=== PATIENT | female | born 1995 | race Caucasian/White ===

== ENCOUNTER 2019-04-26 10:43 | Outpatient (RCR) | payer OTHER, SELFPAY ==
[2019-04-26 13:23] LABS: HIV 1/2 Ab P24 Ag Result Negative (Negative)
[2019-04-26 14:51] LABS: Hematocrit 34.4 % (37.0-47.0); Hemoglobin 11.3 g/dL (12.0-15.0)
[2019-04-27 10:48] LABS: Rapid Plasma Reagin Non-Reactive (NonReactive)
[2019-04-28] MEDS: RHO(D) IMMUNE GLOBULIN 300 MCG SYRINGE IM (16:48)
== END 2019-07-25 23:59 | disposition home or self-care (01) ==
LOC: ANHLAB 10:43
PROVIDERS: PCP Physician Assistant; Visit Provider Advanced Practice Midwife
DX: Z36.89 Encounter for other specified antenatal screening (principal); Z29.13 Encounter for prophylactic Rho(D) immune globulin; O36.0990 Maternal care for other rhesus isoimmunization, unspecified trimester, not applicable or unspecified; Z3A.00 Weeks of gestation of pregnancy not specified
CPT/HCPCS: 36415; 85014; 85018; 86592; 86703; 86850; 86900; 86901; 90384; 96372; G0432; J2790

== ENCOUNTER 2019-07-03 14:11 | Observation (INO) | payer OTHER, SELFPAY ==
[2019-07-03 14:30] VITALS: BMI 36.3
--- NOTE | 2019-07-03 16:44 | PC.NURSE ---
Discharge interventions were actually done by Arnol Jacobo RNC and not Walt Villegas RN.
--- NOTE | 2019-07-25 21:15 | PM.OBTRLD ---
OB - Triage/Final Diagnosis Visit Information Date of evaluation: 07/03/19 Final Diagnosis (1) False labor: Code(s): O47.9 - False labor, unspecified Status: Acute
== END 2019-07-03 16:44 | disposition home or self-care (01) ==
PROVIDERS: Admitting Provider Obstetrics & Gynecology; PCP Physician Assistant; Visit Provider Obstetrics & Gynecology
DX: O47.1 False labor at or after 37 completed weeks of gestation (principal); Z3A.37 37 weeks gestation of pregnancy
CPT/HCPCS: G0378; G0379

== ENCOUNTER 2019-07-07 01:00 | Inpatient (IN) | payer OTHER, SELFPAY ==
[2019-07-06 07:09] VITALS: BP 119/75; PULSE 74; RESP 12; TEMP 36.8; O2SAT 99
[2019-07-07] VITALS (15 sets, daily range): BP systolic 127–156; BP diastolic 65–98; PULSE 77–105; RESP 14; TEMP 36.4–36.8; O2SAT 100
[2019-07-07 02:24] LABS: Basophils Percent Auto 0.2 % (0.2-1.2); Eosinophils Absolute Auto 0.2 K/mm3 (0-0.3); Eosinophils Percent Auto 1.2 % (0-4.4); Hematocrit 34.2 % (37.0-47.0); Hemoglobin 11.2 g/dL (12.0-15.0); Immature Granulocyte Absolute 0.07 K/mm3 (0.00-0.031); Immature Granulocyte Percent A 0.6 % (0-0.5); Lymphocytes Absolute Auto 1.45 K/mm3 (0.9-3.2); Lymphocytes Percent Auto 11.9 % (18.3-44.2); Mean Corpuscular HGB Conc 32.7 g/dl (32-36); Mean Corpuscular Hemoglobin 26.8 pg (26-34); Mean Corpuscular Volume 81.8 fl (80-100); Mean Platelet Volume 11.5 fl (7.4-10.4); Monocytes Absolute Auto 0.8 K/mm3 (0.1-0.6); Monocytes Percent Auto 6.6 % (2.6-8.5); Neutrophils Absolute Auto 9.7 K/mm3 (1.3-6.7); Neutrophils Percent Auto 79.5 % (45.5-73.1); Platelet Count Result 201 k/mm3 (150-375); Red Blood Count 4.18 M/mm3 (4.2-5.4); Red Cell Distribution Width 14.6 % (11.5-14.5); White Blood Count 12.2 K/mm3 (4.5-10.0)
[2019-07-07] MEDS: LACTATED RINGERS 1,000 ML 125 ML IV CONT (02:30)
[2019-07-07] MEDS: OXYTOCIN 30 UNITS/NS 500 ML 30 UNITS/500 ML BAG 999 UNITS IV CONT (03:15)
--- NOTE | 2019-07-07 03:18 | WPDHPUPDATE1 ---
History and Physical Update Update Date/Time: 07/07/19 03:18 24 year old multi who presented in labor with srom. Shortly after was . History and Physical has been reviewed, including an updated exam of the patient. There are NO changes in the patient's condition. Risks, benefits, and alternatives have been discussed and questions answered. Patient agrees to proceed with procedure.
--- NOTE | 2019-07-07 03:22 | PM.OBPRVD ---
OB - Delivery Note Procedure Delivery date: 07/07/19 Intrapartal events: None Induction method: none Delivery monitor: external FHT and external uterine Route of delivery: Laceration description: None Specimen: No Estimated blood loss (mL): 200 Anesthesia type: None Disposition: floor [place] Baby Date of : 07/07/19 Time of : 03:07 Weeks of gestation at delivery: 37 gender: Female Weight (pounds): 6 Weight (ounces): 11 presentation: vertex Placenta delivery description: Spontaneous score one minute: 9 score five minutes: 9
[2019-07-07] MEDS: OXYTOCIN 30 UNITS/NS 500 ML 30 UNITS/500 ML BAG 125 UNITS IV CONT (03:50)
[2019-07-07] MEDS: IBUPROFEN 600 MG TABLET PO ×3 (03:50→19:11)
--- NOTE | 2019-07-07 05:36 | PC.NURSE ---
Patient transferred to post room #286 via wheel chair. Support person present. Oriented to unit, room, information board, rooming in, admission packet and security measures. Patient verbalizes understanding.
--- NOTE | 2019-07-07 07:50 | LDADM ---
This patient, Nidia Rodriguez, was admitted to OB 2nd Floor Room 286 on 07/07/19 at 01:00. Plans for labor, pain management and were discussed with patient. Patient/family oriented to hospital policies and general routines including ID bracelet, bed and alarms, visiting hours, pain management, procedures, bathroom and other care routines, personal items, smoking policy, room service/diet and guest tray routines, infant security routines, and visiting hours. Patient/Family are encouraged to report perceived risks to care and to ask questions if they do not understand what they are told or what they should do. See OBIX for further documentation.
[2019-07-07] MEDS: DOCUSATE SODIUM 100 MG CAPSULE PO (10:42)
[2019-07-07] MEDS: MULTIVIT/MIN/PREN/FOL AC/IRON TABLET 1 TAB PO (10:42)
[2019-07-07] MEDS: ACETAMINOPHEN 325 MG TABLET 650 MG PO (15:54)
[2019-07-07] MEDS: TETANUS,DIPHTHERIA,AC PERTUSSIS ADULT (0.5 ML) BOOSTRIX IM (15:57)
[2019-07-08] MEDS: IBUPROFEN 600 MG TABLET PO (03:15)
[2019-07-08 06:07] LABS: Hematocrit 30.3 % (37.0-47.0); Hemoglobin 9.9 g/dL (12.0-15.0)
[2019-07-08 08:00] VITALS: BP 104/64; PULSE 82; RESP 18; TEMP 36.2; O2SAT 96
[2019-07-08] MEDS: MULTIVIT/MIN/PREN/FOL AC/IRON TABLET 1 TAB PO (08:18)
[2019-07-08] MEDS: ACETAMINOPHEN 325 MG TABLET 650 MG PO (08:18)
[2019-07-08] MEDS: DOCUSATE SODIUM 100 MG CAPSULE PO (08:18)
[2019-07-08] MEDS: POLYSACCHARIDE IRON COMPLEX 150 MG CAPSULE PO (08:18)
--- NOTE | 2019-07-08 12:15 | PM.OBPNVD ---
OB - PN: Subj Subjective Date/time seen: 07/08/19 12:15 Patient comments: no complaints, pain well controlled, incisional pain, tolerating diet and flatus present OB - PN: Obj Data Labs CBC & Chem 7: 07/08/19 05:05 Labs: Laboratory Results - last 24 hr 07/08/19 05:05 Hgb 9.9 L Hct 30.3 L OB - PN A/P Plan day: 1 Plan: routine care Comments: No problems, routine care Time Spent With Patient Time: Total time spent is greater than 50% in coordination of care (as documented) at patient's floor/unit and/or counseling patient: Exam Const: General: comfortable, no acute distress and alert Resp: Effort & Inspection: normal respiratory effort Auscultation: no crackles, no rales and no rhonchi Cardio: Rate: regular rate Heart sounds: no click, no murmurs and no rubs GI: Inspection: non-distended GI Palp: No Tenderness to palpation present (GI) Auscultation: normal bowel sounds Other: Incision - CDI Extrem: General: normal to inspection, no pedal edema and no calf tenderness
--- NOTE | 2019-07-08 12:16 | PM.OBDSVD ---
OB - DS: Summary OB Procedures : None OB Procedures Intrapartum: Spontaneous Vag Delivery OB Procedures: : None Peripartum Data Delivery Method: Natural Vaginal complications: none Status at Discharge Functional status at discharge: independent ambulation Time Spent with Patient Time attestation: Total time spent providing and/or coordinating discharge services: DS: Data Data Completed and Pending Labs on day of discharge: Labs from last 24 hours 07/08/19 05:05 Hgb 9.9 L Hct 30.3 L Discharge Plan Discharge Discharging Clinician: Briana Henry Patient Disposition: Home, Self-Care Activity: pelvic rest Diet: regular Patient Instructions: Antibiotic Form Stand Alone Forms: General Discharge Information Follow-up/Referrals: Briana Henry MD [Physician] - Discharge Medications: Continued 19 29 mg iron- 1 mg Tablet,Chewable 1 tablet PO DAILY RF: 0 Date of admission: 07/07/19 01:00 Primary Care Provider: KelseaBoni Admitting Provider: Briana Henry Attending physician on admission: Briana Henry
[2019-07-09 09:25] LABS: Rapid Plasma Reagin Non-Reactive (NonReactive)
[2019-07-10 09:38] VITALS: BP 123/71; PULSE 76; RESP 16; TEMP 36.5; O2SAT 100
== END 2019-07-08 14:12 | disposition home or self-care (01) | DRG 560 ==
LOC: ANHLDR 02:20 → ANHOB2 06:46
PROVIDERS: Admitting Provider Obstetrics & Gynecology; PCP Physician Assistant; Visit Provider Obstetrics & Gynecology
DX: O62.3 Precipitate labor (principal); Z3A.37 37 weeks gestation of pregnancy; Z37.0 Single live birth
CPT/HCPCS: 36415; 85014; 85018; 85025; 86592; 86850; 86900; 86901; 90715; A9270; J2590; J7120

== ENCOUNTER 2023-04-29 09:31 | Outpatient (RCR) | payer BC, SELFPAY ==
[2023-04-29 11:03] LABS: Hematocrit 34.1 % (37.0-47.0); Hemoglobin 11.1 g/dL (12.0-15.0)
[2023-04-29 11:18] LABS: Glucose 1 Hour PP 50gm Dose 136 mg/dL
[2023-04-29 12:02] LABS: HIV 1/2 Ab P24 Ag Result Negative (Negative)
[2023-05-01] MEDS: RHO(D) IMMUNE GLOBULIN 300 MCG/2 ML SYRINGE IM (15:46)
== END 2023-07-28 23:59 | disposition home or self-care (01) ==
LOC: ANHLAB 09:31
PROVIDERS: PCP Physician Assistant; Visit Provider Obstetrics & Gynecology
DX: Z11.4 Encounter for screening for human immunodeficiency virus [HIV] (principal); Z29.13 Encounter for prophylactic Rho(D) immune globulin; O36.0130 Maternal care for anti-D [Rh] antibodies, third trimester, not applicable or unspecified; Z3A.00 Weeks of gestation of pregnancy not specified
CPT/HCPCS: 36415; 82947; 85014; 85018; 85461; 86703; 86850; 86880; 86900; 86901; 86902; 90384; 96372; G0432; J2790

== ENCOUNTER 2023-06-18 15:37 | Inpatient (IN) | payer BC, MEDICAID, SELFPAY ==
[2023-06-18] VITALS (14 sets, daily range): BP systolic 122–153; BP diastolic 59–83; PULSE 74–92; TEMP 36.3–36.4; BMI 39.8
--- NOTE | 2023-06-18 15:37 | OBADM ---
This patient, Nidia Rodriguez, admitted to the OB room Labor/Delivery/Recovery 107 for observation. Patient/family oriented to hospital policies and general routines including ID bracelet, bed and alarms, visiting hours, pain management, procedures, bathroom and other care routines, personal items, smoking policy, room service/diet, and visiting hours. Patient/Family are encouraged to report perceived risks to care and to ask questions if they do not understand what they are told or what they should do.
[2023-06-18] MEDS: NIFEdipine 30 MG TAB.ER.24 PO (16:17)
--- NOTE | 2023-06-18 17:18 | LDADM ---
This patient, Nidia Rodriguez, was admitted to Labor/Delivery/Recovery 107 on 06/18/23 at 17:18. Plans for labor, pain management and were discussed with patient. Patient/family oriented to hospital policies and general routines including ID bracelet, bed and alarms, visiting hours, pain management, procedures, bathroom and other care routines, personal items, smoking policy, room service/diet and guest tray routines, infant security routines, and visiting hours. Patient/Family are encouraged to report perceived risks to care and to ask questions if they do not understand what they are told or what they should do. See OBIX for further documentation.
[2023-06-18 17:49] LABS: Basophils Percent Auto 0.1 % (0.2-1.2); Eosinophils Absolute Auto 0.1 K/mm3 (0-0.3); Eosinophils Percent Auto 0.7 % (0-4.4); Hematocrit 32.9 % (37.0-47.0); Hemoglobin 10.9 g/dL (12.0-15.0); Immature Granulocyte Absolute 0.04 K/mm3 (0.00-0.031); Immature Granulocyte Percent A 0.3 % (0-0.5); Lymphocytes Absolute Auto 1.37 K/mm3 (0.9-3.2); Lymphocytes Percent Auto 10.1 % (18.3-44.2); Mean Corpuscular HGB Conc 33.1 g/dl (32-36); Mean Corpuscular Hemoglobin 27.2 pg (26-34); Mean Platelet Volume 10.8 fl (7.4-10.4); Monocytes Absolute Auto 0.7 K/mm3 (0.1-0.6); Monocytes Percent Auto 5.3 % (2.6-8.5); Neutrophils Absolute Auto 11.3 K/mm3 (1.3-6.7); Neutrophils Percent Auto 83.5 % (45.5-73.1); Platelet Count Result 224 k/mm3 (150-375); Red Blood Count 4.01 M/mm3 (4.2-5.4); Red Cell Distribution Width 13.2 % (11.5-14.5); White Blood Count 13.6 K/mm3 (4.5-10.0)
[2023-06-18] MEDS: AMPICILLIN 2 GM/NS 100 ML 2 GM/100 ML BAG IVPB (18:19)
[2023-06-18] MEDS: LACTATED RINGERS 1,000 ML 125 ML IV CONT (18:19)
[2023-06-18 20:39] LABS: Bacteria Urine None Seen /hpf; Non Pathogenic Casts 0-2; RBC Urine 0-2 /hpf (0-2); Squamous Epithelial Cell Urine Occasional /hpf (Few)
[2023-06-18 20:42] LABS: Appearance Urine Clear (Clear); Color Urine Dark Yellow (Yellow); Glucose Urine UA Negative (Negative); Protein Urine 1+ mg/dL (Negative); Specific Grav Ur >= 1.030 (1.001-1.035); pH Urine 6.5 (5.0-9.0)
[2023-06-18 20:43] LABS: Add Urine Microscopic? YES; Bilirubin Urine 1+ (Negative); Blood Urine Negative (Negative); Ketones Urine 3+ mg/dL (Negative); Leukocyte Esterase Ur Negative LEU/UL (Negative); Nitrate Urine Negative (Negative)
[2023-06-18 21:00] LABS: Creatinine Urine 179.8 mg/dL; Total Protein Urine Random 14 mg/dL; Ur Ttl Prot Creatinine Ratio 0.08 mg/mg (0-0.20)
[2023-06-18 21:17] LABS: Alanine Aminotransferase 11 U/L (6-35); Albumin Level 3.4 g/dL (3.5-5.1); Alkaline Phosphatase 155 U/L (38-126); Anion Gap 4 mmol/L (8-16); Aspartate Amino Transferase 16 U/L (14-36); Bilirubin,Total 0.6 mg/dL (0.2-1.3); Blood Urea Nitrogen 7 mg/dL (7-17); Calcium 8.6 mg/dL (8.4-10.2); Carbon Dioxide 23 mmol/L (22-30); Chloride 106 mmol/L (98-107); Estimated CRCL calculation 179 ml/min; Estimated Glomerular Filt Rate > 60; Glucose 82 mg/dL (65-110); Potassium 3.2 mmol/L (3.4-5.0); Sodium 133 mmol/L (137-145)
--- NOTE | 2023-06-18 22:46 | PC.NURSE ---
Patient left at 2241 ambulatory with no distress noted. Discharge instructions discussed and patient verbalized understanding. Informed to come back in if contractions are consistently 5 mins or less apart, vaginal bleeding, or water breaks. Informed to go to nearest hospital if there is an emergency.
--- NOTE | 2023-06-20 15:57 | PM.IMHP ---
H&P: HPI History of Present Illness Date/Time: 06/20/23 15:57 Chief Complaint: 35 weeks gestation, admitted for early labor, gbs unknown. after changing cervix from 3-4, pt has remain unchanged, contrcations have slowed with hydration and medication. Review of Systems Review of Systems: All systems reviewed & are unremarkable except as noted in HPI and below PMFSH Family History Family History (Updated 06/27/19 @ 13:41 by Madelaine Ta RN) Father Hypertension Grandparent Cancer Heart disease Sibling Optic nerve hypoplasia of left eye Social History Social History Smoking status: Never smoker Substance use: never Do You Feel Safe in your Home?: Yes Lack of Transportation: No Lack of Food: Never True Current Housing: I Have Housing Concerned About Future Housing: No Difficulty Paying Gas/Electric Bills: No Difficulty Paying for Meds: No Currently Unemployed: No Education: High School Diploma/GED Difficulty w/ Childcare or Family Care: No Spiritual care concerns: No Meds Home Medications and Allergies Home Medications Medication Instructions Recorded Confirmed Type vitamin no.115-iron 29 1 tablet PO DAILY 06/27/19 06/18/23 History mg-folic acid 1 mg chewable tablet ( 19) Allergies Allergy/AdvReac Type Severity Reaction Status Date / Time nickel Allergy Unknown Rash Verified 06/27/19 13:38 Exam Const: General: cooperative Psych: Appearance: grossly normal Assessment and Plan Assessment and plan (1) contractions: Code(s): O47.00 - False labor before 37 completed weeks of gestation, unspecified trimester Status: Acute Plan 1. contractions resolved pt d/c d home
--- NOTE | 2023-06-20 16:00 | PM.OBDSVD ---
DS: Admitting Diagnosis Discharge Date 06/18/23 Admitting Diagnosis contractions DS: Discharge Diagnosis Discharge Diagnosis (1) contractions: Code(s): O47.00 - False labor before 37 completed weeks of gestation, unspecified trimester Status: Acute OB - DS: Summary OB Procedures : None OB Procedures Intrapartum: Other (undelivered) OB Procedures: : None Time Spent with Patient Time attestation: Total time spent providing and/or coordinating discharge services: Discharge Plan Discharge Consulting providers: Jeana Ho Discharging Clinician: Jeana Ho Patient Disposition: Home, Self-Care Activity: as tolerated Diet: as tolerated Discharge Instructions: OB ANTEPARTUM DISCHARGE INSTRUCTIONS This information is given to help you properly care for yourself at home after your discharge from the hospital. Follow these instructions until your doctor tells you otherwise. DIET: Additional Diet Instructions: ACTIVITY: Additional Activity Instructions: RETURN TO LABOR AND DELIVERY IF YOU HAVE: Additional Reasons to Return to Labor and Delivery: Contractions may feel like abdominal pain, tightening, cramping, pressure, back ache, or thigh ache. Come in if contractions are consistently less than 5 minutes apart, water breaks, or vaginal bleeding. Do kick counts. Stay hydrated. OTHER INSTRUCTIONS: FOLLOW-UP CARE: To see in/on Valuables released to patient or family? Medications from home returned to patient? IF YOU HAVE ANY QUESTIONS REGARDING THESE INSTRUCTIONS, PLEASE CALL [phone]. IF PROBLEMS ARISE, CALL YOUR PROVIDER. IF EMERGENCY CARE IS NEEDED, [facility] EMERGENCY ROOM IS AVAILABLE 24 HOURS A DAY. Patient Instructions: Antibiotic Form Stand Alone Forms: General Discharge Information Follow-up/Referrals: Jeana Ho CNM [Certified Nurse Small Boat Engineer] - Discharge Medications: Continued 19 29 mg iron- 1 mg Tablet,Chewable 1 tablet PO DAILY Date of admission: 06/18/23 17:18 Primary Care Provider: KelseaBoni Admitting Provider: Briana Henry Attending physician on admission: Briana Henry Condition: Stable
[2023-06-20 16:53] LABS: Rapid Plasma Reagin Non-Reactive (NonReactive)
== END 2023-06-18 22:41 | disposition home or self-care (01) | DRG 833 ==
PROVIDERS: Advanced Practice Midwife; Admitting Provider Obstetrics & Gynecology; PCP Physician Assistant; Visit Provider Obstetrics & Gynecology
DX: O47.03 False labor before 37 completed weeks of gestation, third trimester (principal); Z3A.37 37 weeks gestation of pregnancy
CPT/HCPCS: 36415; 80053; 81001; 82570; 84156; 85025; 86592; 86850; 86880; 86900; 86901; 86902; 87086; A9270; G0378; G0379; J0290; J7120

== ENCOUNTER 2023-07-01 04:53 | Inpatient (IN) | payer BC, MEDICAID, SELFPAY ==
[2023-07-01] VITALS (34 sets, daily range): BP systolic 116–165; BP diastolic 66–138; PULSE 63–111; RESP 16–18; TEMP 36.3–36.7; O2SAT 100; BMI 39.1
--- NOTE | 2023-07-01 05:51 | ADMGEN ---
This patient, Niida Rodriguez, was admitted to Labor/Delivery/Recovery 107-00. Patient/family oriented to hospital policies and general routines including ID bracelet, bed and alarms, visiting hours, pain management, procedures, bathroom and other care routines, personal items, smoking policy, room service/diet, and visiting hours. Information on how to activate the Rapid Response Team has been discussed. Patient/Family are encouraged to report perceived risks to care and to ask questions if they do not understand what they are told or what they should do.
[2023-07-01 06:00] LABS: Basophils Percent Auto 0.3 % (0.2-1.2); Eosinophils Absolute Auto 0.2 K/mm3 (0-0.3); Eosinophils Percent Auto 1.5 % (0-4.4); Hematocrit 31.7 % (37.0-47.0); Hemoglobin 10.6 g/dL (12.0-15.0); Immature Granulocyte Absolute 0.04 K/mm3 (0.00-0.031); Immature Granulocyte Percent A 0.4 % (0-0.5); Lymphocytes Absolute Auto 1.48 K/mm3 (0.9-3.2); Mean Corpuscular HGB Conc 33.4 g/dl (32-36); Mean Corpuscular Hemoglobin 26.9 pg (26-34); Mean Corpuscular Volume 80.5 fl (80-100); Monocytes Absolute Auto 0.7 K/mm3 (0.1-0.6); Monocytes Percent Auto 6.7 % (2.6-8.5); Neutrophils Absolute Auto 7.5 K/mm3 (1.3-6.7); Neutrophils Percent Auto 76.1 % (45.5-73.1); Platelet Count Result 206 k/mm3 (150-375); Red Blood Count 3.94 M/mm3 (4.2-5.4); Red Cell Distribution Width 13.7 % (11.5-14.5); White Blood Count 9.9 K/mm3 (4.5-10.0)
[2023-07-01] MEDS: OXYTOCIN 30 UNITS/NS 500 ML 30 UNITS/500 ML BAG IV CONT (06:30)
[2023-07-01] MEDS: LACTATED RINGERS 1,000 ML 125 ML IV CONT (06:30)
--- NOTE | 2023-07-01 07:19 | WPDOBADMIT ---
Obstetrics - Admit Note Admission Note: record reviewed. No pertinent additions to the history and/or any subsequent changes in the physical findings that are not consistent with the expected course of the were found. Additions to the history and/or subsequent changes in the physical findings follow. IOL, GHTN, SVE /-2 AROM large amount of clear, odorless fluid, anticipate vaginal delivery
[2023-07-01] MEDS: fentaNYL CITRATE INJ (*CRX) 100 MCG/2 ML VIAL IV PUSH (09:45)
--- NOTE | 2023-07-01 10:18 | PM.OBPRVD ---
OB - Vaginal Delivery Note Procedure Delivery date: 07/01/23 Events: Gestational Hypertension Induction method: AROM and Per Pitocin Protocol Delivery monitor: External FHT and Internal FHT Route of delivery: Episiotomy description: None Laceration Description: None Specimen: Yes Quantitative Blood Loss (ml): 150 Anesthesia type: Epidural Disposition: Floor Complications: No immediate complications [place] Baby Date of : 07/01/23 Time of : 10:05 Weeks of gestation at delivery: 37 Infant gender: Female presentation: vertex position: Left Occiput Anterior Placenta delivery description: Manual Removal Cord Vessel Description: 3 Vessels, Clamped/Cut and Delayed Cord Clamping score one minute: 9 score five minutes: 9 Narrative: mother and baby skin to skin in stable condition
[2023-07-01] MEDS: ceFAZolin 2 GM/D5W 50 ML 2 GM/50 ML BAG IVPB (10:19)
[2023-07-01] MEDS: OXYTOCIN 30 UNITS/NS 500 ML 30 UNITS/500 ML BAG 125 UNITS IV CONT (10:39)
[2023-07-01] MEDS: BENZOCAINE 20% AER SPR (*SP) 56 GM CAN 1 SPRAY TOPICAL (12:29)
[2023-07-01] MEDS: WITCH HAZEL 40 PADS 1 PAD TOPICAL (12:29)
[2023-07-01 12:40] LABS: Rapid Plasma Reagin Non-Reactive (NonReactive)
--- NOTE | 2023-07-01 12:40 | PC.NURSE ---
Patient transferred to post room #283 per wheelchair from labor and delivery. Support person present. Oriented to unit, room, information board, rooming in, admission packet and security measures. Patient verbalizes understanding.
[2023-07-01] MEDS: IBUPROFEN 600 MG TABLET PO (15:07)
[2023-07-02] MEDS: IBUPROFEN 600 MG TABLET PO (01:10)
[2023-07-02] MEDS: ACETAMINOPHEN 325 MG TABLET 650 MG PO (04:51)
[2023-07-02 05:15] LABS: Hemoglobin 10.6 g/dL (12.0-15.0)
[2023-07-02 05:50] VITALS: BP 131/80; PULSE 77; RESP 16; TEMP 36.6; O2SAT 100
[2023-07-02 08:07] VITALS: BP 111/70; PULSE 73; RESP 16; TEMP 36.6; O2SAT 100
[2023-07-02] MEDS: MULTIVIT/MIN/PREN/FOL AC/IRON TABLET 1 TAB PO (08:39)
[2023-07-02] MEDS: DOCUSATE SODIUM 100 MG CAPSULE PO (08:39)
--- NOTE | 2023-07-02 10:43 | PM.OBPNVD ---
OB - PN: Subj Subjective Date/time seen: 07/02/23 10:43 Patient comments: no complaints, pain well controlled, incisional pain, tolerating diet and flatus present OB - PN: Obj Data Labs 07/02/23 04:52 Labs: Laboratory Results - last 24 hr 07/01/23 07/02/23 05:54 04:52 Hgb 10.6 L Hct 33.0 L RPR Non-reactive OB - PN A/P Plan day: 1 Plan: routine care Comments: No problems, routine care Time Spent With Patient Time: Total time spent is greater than 50% in coordination of care (as documented) at patient's floor/unit and/or counseling patient: Exam Const: General: comfortable, no acute distress and alert Resp: Effort & Inspection: normal respiratory effort Auscultation: no crackles, no rales and no rhonchi Cardio: Rate: regular rate Heart sounds: no click, no murmurs and no rubs GI: Inspection: non-distended GI Palp: No Tenderness to palpation present (GI) Auscultation: normal bowel sounds Other: Incision - CDI Extrem: General: normal to inspection, no pedal edema and no calf tenderness
--- NOTE | 2023-07-02 10:43 | PM.OBDSVD ---
DS: Admitting Diagnosis Discharge Date July 02, 2023 Admitting Diagnosis term OB - DS: Summary OB Procedures : None OB Procedures Intrapartum: Spontaneous Vag Delivery OB Procedures: : None Peripartum Data Laceration Description: None Episiotomy description: None Time Spent with Patient Time attestation: Total time spent providing and/or coordinating discharge services: DS: Data Data Completed and Pending Pending studies at discharge: Pending at discharge 07/01/23 11:14 Surgical [PTH] Routine Labs on day of discharge: Labs from last 24 hours 07/02/23 07/01/23 04:52 05:54 Hgb 10.6 L Hct 33.0 L RPR Non-reactive Discharge Plan Discharge Discharging Clinician: Briana Henry Patient Disposition: Home, Self-Care Activity: pelvic rest Diet: regular Patient Instructions: Antibiotic Form Stand Alone Forms: General Discharge Information Follow-up/Referrals: Briana Henry MD [Physician] - Discharge Medications: Continued 19 29 mg iron- 1 mg Tablet,Chewable 1 tablet PO DAILY Date of admission: 07/01/23 04:53 Primary Care Provider: KelseaBoni Admitting Provider: Wilfrido García Attending physician on admission: Wilfrido García Condition: Stable
[2023-07-04 08:19] VITALS: BP 133/85; PULSE 78; RESP 18; TEMP 37; O2SAT 100
--- OUTSIDE RECORDS SUMMARY | 2023-08-03 15:36 | XMS_ITS | Clinical Summary ---
Author Name Unknown Address [address] [place] [address] Phone Organization [facility] Address [address] [place] [address] Phone Care Team Providers Care Vice Chairman Name Role Phone Unavailable Unavailable Unavailable Reason for Visit and Chief Complaint gynecologic annual exam - The Chief Complaint is: WWE and mirena check inserted 10/22/16. Pt states no c/o, she has been checking for the string and finding it. ed Problems Includes: Problems addressed during this encounter and other active Problems Current Visit Onset Date Resolved Date Provider Conditio n Status Gynecologic Services Intrauterine Device (Iud) Checking 11/24/2016 ANA PAULA VASQUEZ MD Active Last Documented On 11/24/2016 3:41PM ; [facility] Note: Unchanged Past Visits Onset Date Resolved Date Provider Condition Status Asthma 02/05/2016 LORI RAMIREZ [facility]- Active Last Documented On 02/05/2016 10:51AM ; [facility] Note: last used inhaler 2012 Plan of Treatment Return to the office in 1 year for follow up. Patient to call the office in the meantime if she has other problems or questions. - Last Documented On 02/25/2017 11:14AM ; [facility] Instructions to patient Instructions for patient : B reast Self Exam discussed and technique reviewed Last Documented On 7 11:08AM ; [facility] Assessments Includes: Assessments from this encounter Findings - F
--- OUTSIDE RECORDS SUMMARY | 2023-08-03 15:36 | XMS_ITS | Clinical Summary ---
Author Name Unknown Address [address] [place] [address] Phone Organization [facility] Address [address] [place] [address] Phone Care Team Providers Care Gas Usage Meter Clerk Name Role Phone Unavailable Unavailable Unavailable Reason for Visit and Chief Complaint * PHONE CALL Problems Includes: Problems addressed during this encounter and other active Problems All Visits Onset Date Resolved Date Provider Condition S tatus Gynecologic Services Intrauterine Device (Iud) Checking 11/24/2016 ANA PAULA VASQUEZ MD Active Last Documented On 11/24/2016 3:41PM ; [facility] Note: Unchanged Asthma 02/05/2016 LORI RAMIREZ [facility] Active Last Documented On 02/05/2016 10:51AM ; [facility] Note: last used inhaler 2012 Plan of Treatment No Plan of Treatment Recorded Assessments Includes: Assessments from this encounter No Assessments Recorded Medical Equipment - Implanted Devices Includes: Current Devices No Medical Equipment Recorded Medications Includes: Medications discussed during this encounter and other current Medications Current Medications (continue as prescribed) Mirena (52 MG) 20MCG/24HR Intrauterine Intrauterine de vice 02/24/2017 Provider: Diagnosis: Formula 27-1 MG Tablet 03/05/2016 Provider: ANA PAULA VASQUEZ MD
--- OUTSIDE RECORDS SUMMARY | 2023-08-03 15:36 | XMS_ITS ---
Author Name Unknown Address [address] [place] [address] Phone Organization [facility] Address [address] [place] [address] Phone Care Team Providers Care Filing Or Registry Clerk Name Role Phone Unavailable Unavailable Unavailable Problems Includes: Active, inactive, and resolved Problems All Visits Onset Date Resolved Date Provider Condition S tatus Gynecologic Services Intrauterine Device (Iud) Checking 11/24/2016 ANA PAULA VASQUEZ MD Active Last Documented On 11/24/2016 3:41PM ; [facility] Note: Unchanged Type A blood, Rh negative 04/21/2016 Unknown ANA PAULA VASQUEZ MD Resolved Last Documented On 10/28/2016 8:41AM ; [facility] Note: was Closed. History of Diabetes Mellitus 03/05/2016 Unknown ANA PAULA VASQUEZ MD Resolved Last Documented On 10/28/2016 8:41AM ; [facility] Note: was Closed. History of Essential Hypertension 03/05/2016 Unknown ANA PAULA VASQUEZ MD Resolved Last Documented On 10/28/2016 8:41AM ; [facility] Note: was Closed. Reported Previous Std 03/05/2016 Unknown ANA PAULA VASQUEZ MD Resolved Last Documented On 10/28/2016 8:41AM ; [facility] Note: was Closed.
--- OUTSIDE RECORDS SUMMARY | 2023-08-03 15:36 | XMS_ITS | Clinical Summary ---
Author Name Unknown Address [address] [place] [address] Phone Organization [facility] Address [address] [place] [address] Phone Care Team Providers Care Cio Name Role Phone Unavailable Unavailable Unavailable Reason for Visit and Chief Complaint The Chief Complaint is: Mirena check Problems Includes: Problems addressed during this encounter and other active Problems Current Visit Onset Date Resolved Date Provider Conditio n Status Gynecologic Services Intrauterine Device (Iud) Checking 11/24/2016 ANA PAULA VASQUEZ MD Active Last Documented On 11/24/2016 3:41PM ; [facility] Note: Unchanged Past Visits Onset Date Resolved Date Provider Condition Status Asthma 02/05/2016 LORI RAMIREZ [facility]- Active Last Documented On 02/05/2016 10:51AM ; [facility] Note: last used inhaler 2012 Plan of Treatment No Plan of Treatment Recorded Assessments Includes: Assessments from this encounter Findings - Checking intrauterine device (IUD) - Last Documented On 11/24/2016 3:42PM ; [facility] Medical Equipment - Implanted Devices Includes: Current Devices No Medical Equipment Recorded Medications Includes: Medications discussed during this encounter and other current Medications Discontinued / Stopped on this date ANA PAULA VASQUEZ MD on 07/05/2016 Acyclovir 400MG Oral Tablet Provider: ANA PAULA VASQUEZ MD Diagnosis: Encounter for presley
--- OUTSIDE RECORDS SUMMARY | 2023-08-03 15:36 | XMS_ITS ---
Care Plan - [facility] Created on: August 03, 2023 IMAN BRITTON : 1995 Sex: Female Author Name Unknown Address [address] [place] [address] [facility] Address [address] [place] [address] Phone Care Team Providers Care Joss House Keeper Name Role Phone Unavailable Unavailable Unavailable
--- OUTSIDE RECORDS SUMMARY | 2023-08-03 15:37 | XMS_ITS | Clinical Summary ---
Author Name Unknown Address [address] [place] [address] Phone Organization [facility] Address [address] [place] [address] Phone Care Team Providers Care Power Brake Operator Name Role Phone Unavailable Unavailable Unavailable Reason for Visit and Chief Complaint The Chief Complaint is: IUD PLACEMENT, The Chief Complaint is: mirena insertion pt is Problems Includes: Problems addressed during this encounter and other active Problems All Visits Onset Date Resolved Date Provider Condition S tatus Gynecologic Services Intrauterine Device (Iud) Checking 11/24/2016 ANA PAULA VASQUEZ MD Active Last Documented On 11/24/2016 3:41PM ; [facility] Note: Unchanged Asthma 02/05/2016 LORI RAMIREZ [facility]- Active Last Documented On 02/05/2016 10:51AM ; [facility] Note: last used inhaler 2013 Plan of Treatment - Sterile speculum inserted - Last Documented On 10/22/2016 1:59PM ; [facility] - Cervix easily visualized, cervix swabbed with Betadine - Last Documented On 10/22/2016 1:59PM ; [facility] - Tenaculum applied to anterior cervix. - Last Documented On 10/22/2016 1:59PM ; [facility] - Uterus sounded to 7.5 cm - Last Documented On 10/22/2016 1:59PM ; [facility] - Mirena nail tech phlange positioned to 7.5 cm, also - Last Documented On 10/22/2016 1:59PM ; [facility] - Mirena nail tech introduced through cervix to 6.5 cm - Last Documented On 10/22/2016 1:59PM ; [facility] - Mirena released and nail tech advanced to 7.5 cm - Last Documented On 10/22/2016 1:59PM ; [facility] - Operator [employer] removed. - Last Documented On 10/22/2016 1:59PM ; [facility] - Tenaculum removed and pressure applied to tenac
--- OUTSIDE RECORDS SUMMARY | 2023-08-03 15:37 | XMS_ITS | Clinical Summary ---
Author Name Unknown Address [address] [place] [address] Phone Organization [facility] Address [address] [place] [address] Phone Care Team Providers Care Jewel Supervisor Name Role Phone Unavailable Unavailable Unavailable Reason for Visit and Chief Complaint The Chief Complaint is: 09/03/16 Problems Includes: Problems addressed during this encounter and other active Problems All Visits Onset Date Resolved Date Provider Condition S tatus Gynecologic Services Intrauterine Device (Iud) Checking 11/24/2016 ANA PAULA VASQUEZ MD Active Last Documented On 11/24/2016 3:41PM ; [facility] Note: Unchanged Asthma 02/05/2016 LORI RAMIREZ [facility]- Active Last Documented On 02/05/2016 10:51AM ; [facility] Note: last used inhaler 2012 Plan of Treatment No Plan of Treatment Recorded Assessments Includes: Assessments from this encounter Findings - Routine history and physical - Last Documented On 10/19/2016 10:26AM ; [facility] Medical Equipment - Implanted Devices Includes: Current Devices No Medical Equipment Recorded Medications Includes: Medications discussed during this encounter and other current Medications Current Medications (continue as prescribed) Mirena (52 MG) 20MCG/24HR Intrauterine Intrauterine de vice 02/24/2017 Provider: Diagnosis:
== END 2023-07-02 12:10 | disposition home or self-care (01) | DRG 807 ==
LOC: ANHOB2 07-02 11:33 → ANHLDR 07-05 07:28 → ANHOB2 07-05 07:28
PROVIDERS: Advanced Practice Midwife; Admitting Provider Obstetrics & Gynecology; PCP Physician Assistant; Visit Provider Obstetrics & Gynecology
DX: O13.4 Gestational [pregnancy-induced] hypertension without significant proteinuria, complicating childbirth (principal); Z37.0 Single live birth; Z3A.37 37 weeks gestation of pregnancy; O32.6XX0 Maternal care for compound presentation, not applicable or unspecified; O62.3 Precipitate labor
CPT/HCPCS: 36415; 85014; 85018; 85025; 86592; 86850; 86880; 86900; 86901; 86902; 88307; A9270; J0690; J2590; J3010; J7120